=== PATIENT | male | born 2000 | race Caucasian/White ===

== ENCOUNTER 2020-11-08 04:37 | Emergency (ER) | payer OTHER, BC ==
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
[2020-11-08 05:08] VITALS: BP 126/78; PULSE 81
--- NOTE | 2020-11-08 14:29 | CT ---
Head CT Technique: Multiple axial sections through the brain were obtained. Intravenous contrast was not utilized. Reconstructed coronal and sagittal images were obtained. Comparison: No prior intracranial imaging is available. Findings: Ventricles along with basal cisterns and sulci over the convexities are within normal limits for the patient's age. No abnormal parenchymal densities are seen. No midline shift or mass-effect is seen. Bone window settings were reviewed. Soft tissue injury is identified around the left ear with bandage in place. Lesser soft tissue swelling appears to be present on the right side as well. Visualized mastoid sinuses and paranasal sinuses show nothing acute. No acute osseous abnormality is appreciated. Impression: 1. Soft tissue injury, asymmetrically worse on the left side with overlying bandage. 2. No acute intracranial abnormality is seen. Diagnostic code #2 I agree with preliminary report from [facility], finalized on 11/08/20, 6:32 AM CDT
== END 2020-11-08 07:25 | disposition home or self-care (01) ==
LOC: JD.ED 04:37
DX: S01.01XA Laceration without foreign body of scalp, initial encounter (principal); S01.312A Laceration without foreign body of left ear, initial encounter; V59.40XA Driver of pick-up truck or van injured in collision with unspecified motor vehicles in traffic accident, initial encounter
CPT/HCPCS: 12001; 12011; 36415; 70450; 70450-26; 80053; 80307; 85007; 85027; 99283; 99284-25